=== PATIENT | female | born 1950 | race Asian ===

== ENCOUNTER 2019-02-11 06:27 | Day surgery (SDC) | payer MEDICARE, BC ==
[2019-02-11] VITALS (11 sets, daily range): BP systolic 102–131; BP diastolic 51–66; PULSE 62–74; RESP 14–62; Ht 152.4 cm; Wt 58.8 kg
[~2019-02-11] VITALS: Ht 152.4 cm; Wt 58.8 kg
[~2019-02-11 06:27] MED LIST: AMLO-147 PO; HYDR25TA6 PO
[2019-02-11] MEDS ORDERED: LIDOCAINE 1% (MPF) 10 ML INJ ONE (06:48)
[2019-02-11] MEDS ORDERED: BUPIVACAINE 0.75% (MPF) 10 ML INJ ONE (06:48)
[2019-02-11] MEDS ORDERED: LIDOCAINE /PF 2% 10 ML AMPUL ONE (06:49)
[2019-02-11] MEDS ORDERED: NA BICARB 50 MEQ/50 ML VIAL ONE (06:49)
[2019-02-11] MEDS ORDERED: EPINEPHrine 1 MG INJ ONE (06:49)
[2019-02-11] MEDS ORDERED: TETRACAINE 0.5% 4 ML OPH ONE (06:49)
[2019-02-11] MEDS ORDERED: TIMOLOL 0.5% 5 ML OPH ONE (06:49)
[2019-02-11] MEDS ORDERED: NEPAFENAC 0.1% 3 ML OPH OPER SCH (07:00)
[2019-02-11] MEDS ORDERED: CYCLOPENTOLATE 2% 2 ML OPH OPER SCH (07:00)
[2019-02-11] MEDS ORDERED: MOXIFLOXACIN 0.5% 3 ML OPH OPER ONE (07:00)
[2019-02-11] MEDS ORDERED: PHENYLephrine 10% 5 ML OPH OPER SCH (07:00)
[2019-02-11] MEDS ORDERED: LIDOCAINE 2% (SDV) 5 ML INJ ONE (07:22)
[2019-02-11] MEDS ORDERED: PROPOFOL 200 MG INJ ONE (07:22)
[2019-02-11] MEDS ORDERED: SEVOFLURANE 15 MIN ONE (07:22)
[2019-02-11] MEDS ORDERED: EPHEDrine 25 MG/5 ML SYG ONE (07:22)
[2019-02-11] MEDS ORDERED: FENTAnyl 50 MCG/ML VIAL ONE (07:23)
[2019-02-11] MEDS ORDERED: ONDANSETRON 4 MG INJ ONE (08:18)
== END 2019-02-11 11:31 | disposition home or self-care (01) ==
LOC: SDS 06:27
PROVIDERS: ATTEND Ophthalmology
DX: H25.12 Age-related nuclear cataract, left eye (principal); I10 Essential (primary) hypertension
CPT/HCPCS: 66984; J0171; J2405; J3010; V2632